=== PATIENT | female | born 1960 | race Caucasian/White ===

== ENCOUNTER 2018-04-13 23:00 | Inpatient (IN) | payer OTHER ==
[~2018-04-13] VITALS: Ht 154.9 cm; Wt 85.6 kg
[~2018-04-13 23:00] MED LIST: ATEN-122 PO; FER325 PO; FURO-110 PO; ISOS30TA55 PO; LYR75 PO; OMEP20CA9 PO; OXYC-284 PO
--- NOTE | 2018-04-13 23:10 | ERD ---
ER Documentation Chief Complaint Chief Complaint Right hip pain HPI The patient is a 57-year-old female, presenting to the ER because of acute right hip pain after she fell off the electric shopping cart at [facility]. She denies any head trauma, facial pain, neck pain, chest pain, dyspnea. The pain is 10/10, worse with movement. Past medical history: Hypertension, cirrhosis, chronic low back pain Past surgical history: Infected right knee after hemiarthroplasty, appendectomy, 2 ROS All systems reviewed and are negative except as per history of present illness. Medications Home Meds Reported Medications Oxycodone Hcl-Acetaminophen* (Percocet*) 10-325 Mg Tablet, 1 TAB PO TID PRN for PAIN, TAB 06/13/14 Ferrous Sulfate* (Ferrous Sulfate*) 325 Mg Tabec, 650 MG PO DAILY, TAB 06/12/14 Furosemide* (Lasix*) 20 Mg Tablet, 20 MG PO DAILY, TAB 06/12/14 Isosorbide Mononitrate (Isosorbide Mononitrate) 30 Mg Tab.sr.24h, 30 MG PO DAILY 12/28/11 Atenolol* (Tenormin*) 50 Mg Tablet, 50 MG PO DAILY 04/27/11 Omeprazole* (Prilosec*) 20 Mg Capsule.dr, 20 MG PO BID 04/27/11 Pregabalin* (Lyrica*) 75 Mg Capsule, 150 MG PO BID 11/08/10 Allergies Allergies: Coded Allergies: Penicillins (Verified Allergy, Intermediate, HIVES, 07/02/14) PMhx/Soc Anesthesia Reaction: No Hx Neurological Disorder: No Hx Respiratory Disorders: No Hx Cardiac Disorders: Yes (stent placement ) Hx Psychiatric Problems: No Hx Miscellaneous Medical Probl: No Hx Alcohol Use: No Hx Substance Use: No Hx Tobacco Use: Yes Physical Exam Vitals Vital Signs Date Temp Pulse Resp B/P (MAP) Pulse Ox O2 O2 Flow FiO2 Time Delivery Rate 04/14/18 100 13 131/94 98 Nasal 2.0 02:59 (106) Cannula 04/14/18 99 14 149/97 99 Nasal 2.0 02:17 (114) Cannula 04/14/18 101 00:33 04/14/18 158 16 141/87 98 Nasal 2.0 00:30 (105) Cannula 04/13/18 98.0 160 20 138/100 99 23:15 (113) Physical Exam Const: No acute distress. Head: Atraumatic. Eyes: Normal Conjunctiva. ENT: Normal External Ears, Nose and Mouth. Neck: Full range of motion. No meningismus. Resp: Clear to auscultation bilaterally. Cardio: Regular tachycardic Abd: Soft, non distended, normal bowel sounds, non tender. Skin: No petechiae or rashes. Back: No midline or flank tenderness. Ext: Right lower extremity is shortened and externally rotated, palpable distal pulses Neur: Awake and alert. No focal deficit Psych: Normal Mood and Affect. Result Diagram: 04/13/187 04/13/187 Results 24 hrs Laboratory Tests Test 04/13/18 23:17 White Blood Count 2.9 10^3/ul Red Blood Count 4.25 10^6/ul Hemoglobin 11.4 g/dl Hematocrit 36.7 % Mean Corpuscular Volume 86.4 fl Mean Corpuscular Hemoglobin 26.8 pg Mean Corpuscular Hemoglobin Concent 31.1 g/dl Red Cell Distribution Width 16.8 % Platelet Count 53 10^3/UL Mean Platelet Volume fl Immature Granulocytes % 0.700 % Neutrophils % % Lymphocytes % % Monocytes % % Eosinophils % % Basophils % % Nucleated Red Blood Cells % 0.0 /100WBC Immature Granulocytes # 0.020 10^3/ul Neutrophils # 10^3/ul Lymphocytes # 10^3/ul Monocytes # 10^3/ul Eosinophils # 10^3/ul Basophils # 10^3/ul Nucleated Red Blood Cells # 10^3/ul Prothrombin Time 18.8 Sec Prothrombin Time Ratio 1.5 INR International Normalized Ratio 1.56 Activated Partial Thromboplast Time 45.4 Sec Sodium Level 135 mmol/L Potassium Level 3.7 mmol/L Chloride Level 101 mmol/L Carbon Dioxide Level 24 mmol/L Anion Gap 10 Blood Urea Nitrogen 14 mg/dl Creatinine 0.64 mg/dl Est Glomerular Filtrat Rate mL/min > 60 mL/min Glucose Level 105 mg/dl Calcium Level 9.3 mg/dl Magnesium Level 1.4 mg/dl Troponin I < 0.012 ng/ml Current Medications Medications Dose Sig/Irasema Start Time Status Last (Trade) Ordered Route PRN Stop Time Admin Dose Reason Admin 0.5 mg ONCE STAT 04/13/18 DC 04/13/18 Hydromorphone IV 23:33 04/13/18 23:43 HCl 23:35 (Dilaudid) 0.5 mg ONCE STAT 04/14/18 DC 04/14/18 Hydromorphone IV 00:06 04/14/18 00:12 HCl 00:08 (Dilaudid) Adenosine 2 ml @ [facility]-MED 04/14/18 DC ONCE .ROUTE 00:22 04/14/18 00:23 Adenosine 6 mg ONCE ONCE 04/14/18 DC 04/14/18 (Adenosine) IV 01:00 04/14/18 00:30 01:01 0.5 mg ONCE STAT 04/14/18 DC 04/14/18 Hydromorphone IV 01:46 04/14/18 01:51 HCl 01:47 (Dilaudid) 0.5 mg ONCE ONCE 04/14/18 DC Hydromorphone IV 03:07 04/14/18 HCl 03:08 (Dilaudid) Procedures/[place] [address] Radiology Main Line: [phone] DIAGNOSTIC IMAGING REPORT Patient: FOREST IRELAND : 1960 Age: 57 Sex: F MR #: [id number] DOS: 04/14/18 0014 Ordering MD: WILLIS ROMAN MD Location: E/R Room/Bed: PROCEDURE: Portable chest x-ray. CLINICAL INDICATION: Chest pain. TECHNIQUE: Portable AP view of the chest. COMPARISON: 10/29/2015. FINDINGS: Transcutaneous pacer pads project over the left thoracoabdominal region. No pulmonary edema or conolidation is identified. The cardiac silhouette is not enlarged. No pleural effusion is seen. There is no pneumothorax. No fracture is identified. IMPRESSION: Transcutaneous pacer pads. No pulmonary edema or consolidation. No fracture. RPTAT: HTAR .Gurdeep Long MD, MD Date Time Electronically viewed and signed by .Gurdeep Long MD, MD on 04/14/2018 00:54 .R/ CC: WILLIS ROMAN MD [phone] [place] [address] Radiology Main Line: [phone] DIAGNOSTIC IMAGING REPORT Patient: FOREST IRELAND : 1960 Age: 57 Sex: F MR #: [id number] DOS: 04/13/18 2334 Ordering MD: WILLIS ROMAN MD Location: E/R Room/Bed: PROCEDURE: CT Pelvis without contrast. CLINICAL INDICATION: Trauma, right hip pain. TECHNIQUE: A CT scan of the pelvis was performed without intravenous contrast. Coronal and sagittal reformatted images were obtained from the axial source images. DICOM images are available. Images were reviewed on a high-resolution PACS workstation. CTDIvol: 16.81 mGy. DLP: 496.57 mGy-cm. One or more of the following dose reduction techniques were used: Automated exposure control. Adjustment of the mA and/or kV according to patient size. Use of iterative reconstruction technique. COMPARISON: None available FINDINGS: There is an intertrochanteric fracture of the right hip with mild external rotation of the distal bone and impaction. Mild bilateral hip arthrosis is noted. Degenerative changes are noted along the lower spine, with mild spinal canal stenosis and moderate to severe bilateral neural foraminal narrowing at L4-5. The spleen is enlarged. The visualized small and large bowel are normal in caliber. No perienteric or pericolonic inflammation is seen. The appendix is not identified. The female pelvic organs are grossly unremarkable. There is no pelvic lymphadenopathy. No ascites or pneumoperitoneum is seen. Minimal arterial calcifications are noted. There is no intraperitoneal inflammation or mass. IMPRESSION: Intertrochanteric fracture of the right hip with mild external rotation of the distal bone and impaction. Mild bilateral hip arthrosis. Mild spinal canal stenosis and moderate to severe bilateral neural foraminal narrowing at L4-5. Splenomegaly. RPTAT: HTAR .Gurdeep Long MD, MD Date Time Electronically viewed and signed by .Gurdeep Long MD, MD on 04/14/2018 00:53 .R/ CC: WILLIS ROMAN MD [id number] EKG: At 2345 hrs. read by emergency physician Rate/Rhythm: SVT at 156 beats/min QRS, ST, T-waves: No ST elevation, inferolateral ST and T abnormality Impression: Abnormal EKG EKG: At 12:29 AM after adenosine 6 mg IV read by emergency physician Rate/Rhythm: Normal Sinus Rhythm 87 beats/min QRS, ST, T-waves: No ST elevation, no T inversion, sinus arrhythmia, septal Q waves Impression: Abnormal EKG Mentation: I discussed the patient with the on-call orthopedist Dr. Zuleta at 1:35 AM, who was made aware of the patient condition, the CT scan finding. He accepted the consult MEDICAL MAKING DECISION: The patient is a 57-year-old female, presenting with acute right hip intertrochanteric fracture, acute SVT. She was treated with Dilaudid 0.5 mg IV times for over many hours for acute right hip pain for pain, Onofre catheter with good response. She was treated with adenosine 6 mg IV that aborted SVT The differential diagnoses considered include but are not limited to structural heart disease, ACS, electrolyte imbalance Critical Care: Time: 35 minutes excluding all billable procedures. Treatments/Evaluations: Close monitoring and treatment of unstable vital signs, cardiorespiratory, and neurologic status, while maintaining tight balance of fluid, respiratory, and cardiac interventions. Departure Diagnosis: Primary Impression: Fracture of right hip Additional Impressions: SVT (supraventricular tachycardia) Pancytopenia Condition: Serious Comments I discussed the findings with the patient. I discussed the patient with the hospitalist Dr Marroquin at 1:50 am. who was made aware of the lab, the treatment, the patient condition. The patient is admitted to Tel Disclaimer: Inadvertent spelling and grammatical errors are likely due to EHR/dictation software use and do not reflect on the overall quality of patient care. Also, please note that the electronic time recorded on this note does not necessarily reflect the actual time of the patient encounter. WILLIS ROMAN MD Apr 13, 2018 23:10
[2018-04-13] MEDS ORDERED: HYDROmorphONE 0.5 MG/0.5 ML SYG IV STA (23:33)
[2018-04-14] VITALS (12 sets, daily range): BP systolic 99–183; BP diastolic 53–88; PULSE 76–114; RESP 18–20; Ht 154.9 cm; Wt 85.6 kg
[2018-04-14] MEDS ORDERED: HYDROmorphONE 0.5 MG/0.5 ML SYG IV STA ×2 (00:06→01:46)
[2018-04-14] MEDS ORDERED: ADENOSINE 2 ML ONE (00:22)
[2018-04-14] MEDS: ADENOSINE 6 MG INJ IV ONE ×2 (00:30→01:27)
[2018-04-14] MEDS ORDERED: HYDROmorphONE 0.5 MG/0.5 ML SYG IV ONE (03:07)
[2018-04-14] MEDS ORDERED: DOXY100T20 PO (03:44)
[2018-04-14] MEDS ORDERED: OXYC15TA3 PO (03:51)
[2018-04-14] MEDS ORDERED: [UNRECOGNIZED DRUG - CODE] INJ (03:51)
[2018-04-14] MEDS ORDERED: FLUO20CA22 PO (03:51)
[2018-04-14] MEDS ORDERED: ALPR1TAB7 PO (03:51)
[2018-04-14] MEDS ORDERED: HYDR4TAB PO (03:51)
[2018-04-14] MEDS ORDERED: ONDANSETRON 4 MG INJ IV PRN (06:00)
[2018-04-14] MEDS ORDERED: DEXTROSE 5%-0.45% NACL 1,000 ML IV SCH (06:00)
[2018-04-14] MEDS ORDERED: hydrALAzine 20 MG INJ IV PRN (06:00)
[2018-04-14] MEDS: morphine 2 MG INJ IV PRN ×5 (06:32→21:05)
[2018-04-14] MEDS: ATENOLOL 50 MG TAB PO SCH (09:05)
[2018-04-14] MEDS ORDERED: MAGNESIUM SULFATE 6 GM in DEXTROSE 5% 150 ML IVPB ONE (10:00)
[2018-04-14] MEDS ORDERED: morphine 2 MG INJ IV STA (10:17)
[2018-04-14] MEDS ORDERED: HYDROCODONE/APAP (5/325) TAB PO PRN (11:30)
[2018-04-14] MEDS ORDERED: NACL 0.9% 3 ML SYG IV SCH (11:30)
--- NOTE | 2018-04-14 11:44 | SIPON ---
Date/Time of Note Date/Time of Note DATE: 04/14/18 TIME: 11:39 Operative Report Preoperative Diagnosis large abcess R.U.E. Postoperative Diagnosis same Operation/Procedure Performed I D of abcesses of R.U.E. + debridment by decortification Surgeon see signature line legal assistant none Anesthesia: general Estimated blood loss: other Transfusion Required none Specimen none Grafts/Implants none Complications none SHAHID FONSECA MD Apr 14, 2018 11:44
[2018-04-14] MEDS: SOD CHLORIDE 0.9% 1,000 ML IV SCH ×2 (11:54→20:59)
[2018-04-14] MEDS ORDERED: FILG480D2 IJ (14:09)
--- NOTE | 2018-04-14 16:21 | CONS ---
DATE OF ADMISSION: 04/14/2018 DATE OF CONSULTATION: 04/14/2018 ORTHOPEDIC CONSULTATION HISTORY OF PRESENT ILLNESS: The patient is a 57-year-old female with a known history of hypertension , cirrhosis of liver and chronic low back pain who was admitted on 04/14/2018 when she came to the em ergency room complaining of painful limit of motion involving the right hip. She developed this pain after falling off an electronic shopping cart at [facility]. She obviously had a total knee replacement done about 3 years ago, which got infected and she went th rough the removal of the knee prosthesis followed by the usual step of debridement, spacer placement followed by a revision total knee replacement of the right knee in the past. PHYSICAL EXAMINATION: My examination revealed a 57-year-old female who was not in any acute distress . There was tenderness and swelling around the right hip. There was a scar over the right knee from previous revision total knee replacement of the right knee. There was no obvious shortening or abno rmal rotation of the right lower extremity at this time. There were no signs of acute neurovascular compromise at this time. IMAGING: CT scan of the hip revealed a presence of intertrochanteric fracture which is not displaced . DIAGNOSTIC IMPRESSION: Intertrochanteric fracture of the right hip. TREATMENT PLAN: Open reduction and internal fixation of the intertrochanteric fracture of the right hip in earliest convenience. Dictated By: LUIS LIRA/NTS Conf#: [id number] DID#: [id number] CC: TOMMIE CHARLES MD;*EndCC*
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
[2018-04-14] MEDS: FILGRASTIM 480 MCG INJ SC SCH (17:00)
[2018-04-14] MEDS: PROCRIT SC SCH (18:35)
[2018-04-15] VITALS (26 sets, daily range): BP systolic 108–166; BP diastolic 54–89; PULSE 68–104; RESP 14–20
[2018-04-15] MEDS: morphine 2 MG INJ IV PRN ×4 (00:35→21:57)
[2018-04-15] MEDS: SOD CHLORIDE 0.9% 1,000 ML IV SCH ×4 (03:52→22:02)
[2018-04-15] MEDS: morphine 4 MG/ML VIAL IV PRN (05:55)
[2018-04-15] MEDS ORDERED: LIDOCAINE 2% (SDV) 5 ML INJ ONE (07:00)
[2018-04-15] MEDS ORDERED: PROPOFOL 20 ML ONE (07:52)
--- NOTE | 2018-04-15 07:56 | PREAC ---
Date/Time of Note Date/Time of Note DATE: 04/15/18 TIME: 07:54 Anesthesia Eval and Record Evaluation Time Pre-Procedure Interview DATE: 04/15/18 TIME: 07:54 Age 57 Sex female NPO: 8 hrs Preoperative diagnosis right hip fracture Planned procedure orif right hip fracture Past Medical History Past Medical History: Includes Cardio: HTN Musculoskeletal: Osteoarthritis Hepatic: Cirrhosis Heme: Anemia, Coagulation disorder, Thrombocytopenia Surgery & Anesthesia Issues No known issue Meds Anticoagulation: No Beta Hkari within 24 hr: Yes Reported Medications Filgrastim (Neupogen) 480 Mcg/0.8 Ml Syringe, 480 MCG IJ q other day 04/14/18 Epoetin Louis (Procrit) 40,000 Unit/1 Ml Vial, 04887 UNIT INJ q other day 04/14/18 Fluoxetine Hcl* (Fluoxetine Hcl*) 20 Mg Capsule, 20 MG PO DAILY for 90 Days, #90 04/14/18 Alprazolam* (Alprazolam*) 1 Mg Tablet, 1 MG PO QHS 04/14/18 Oxycodone Hcl (Roxicodone) 15 Mg Tablet, 15 MG PO TK 1 T PO QID PRN; 04/14/18 Hydromorphone Hcl (Dilaudid) 4 Mg Tab, 4 MG PO for 30 Days, #60 04/14/18 Doxycycline Hyclate* (Doxycycline Hyclate*) 100 Mg Tablet.dr, 100 MG PO BID, TAB 04/14/18 Ferrous Sulfate* (Ferrous Sulfate*) 325 Mg Tabec, 650 MG PO DAILY, TAB 06/12/14 Atenolol* (Tenormin*) 50 Mg Tablet, 50 MG PO DAILY 04/27/11 Omeprazole* (Prilosec*) 20 Mg Capsule.dr, 20 MG PO BID 04/27/11 Discontinued Reported Medications Oxycodone Hcl-Acetaminophen* (Percocet*) 10-325 Mg Tablet, 1 TAB PO TID PRN for PAIN, TAB 06/13/14 Furosemide* (Lasix*) 20 Mg Tablet, 20 MG PO DAILY, TAB 06/12/14 Isosorbide Mononitrate (Isosorbide Mononitrate) 30 Mg Tab.sr.24h, 30 MG PO DAILY 12/28/11 Pregabalin* (Lyrica*) 75 Mg Capsule, 150 MG PO BID 11/08/10 Current Medications Morphine Sulfate (morphine) 2 mg Q3 PRN IV SEVERE PAIN LEVEL 7-10 Last administered on 04/15/18 03:48; Admin Dose 2 MG; Start 04/14/18 at 06:00 Ondansetron HCl (Zofran Inj) 4 mg Q4H PRN IV NAUSEA AND/OR VOMITING Last ad ministered on 04/14/18 20:19; Admin Dose 4 MG; Start 04/14/18 at 06:00 Hydralazine HCl (Apresoline) 10 mg Q4H PRN IV ELEVATED BLOOD PRESSURE Last administered on 04/14/18 06:32; Admin Dose 10 MG; Start 04/14/18 at 06:00 Atenolol (Tenormin) 50 mg DAILY PO Last administered on 04/14/18 09:05; Admin Dose 50 MG; Start 04/14/18 at 09:00 IV Flush (NS 3 ml) 3 ml PER PROTOCOL IV ; Start 04/14/18 at 11:30 Sodium Chloride 1,000 ml @ 100 mls/hr Q10H IV Last administered on 04/15/18at 03:52; Admin Dose 100 MLS/HR; Start 04/14/18 at 11:25 Enoxaparin Sodium (Lovenox) 40 mg DAILY SC ; Start 04/15/18 at 09:00 Morphine Sulfate (morphine) 3 mg Q3H PRN IV SEVERE PAIN LEVEL 7-10 Last administered on 04/15/18 05:55; Admin Dose 3 MG; Start 04/14/18 at 11:30 Acetaminophen/ Hydrocodone Bitart (Winona (5/325)) 1 tab Q3H PRN PO MODERATE PAIN LEVEL 4-6; Start 04/14/18 at 11:30 Patient Own Medication 1 ea Q48H SC Last administered on 04/14/18at 18:35; Admin Dose 1 EA; Start 04/14/18 at 17:00 Filgrastim (Neupogen) 480 mcg Q48H SC ; Start 04/14/18 at 17:00 Meds reviewed: Yes Allergies Coded Allergies: Penicillins (Unverified Allergy, Intermediate, HIVES, 04/14/18) Allergies Reviewed: Yes Labs/Studies Labs Reviewed: Reviewed by anesthesiologist Result Diagram: 04/15/18 0517 04/14/18 1438 Laboratory Tests 04/14/18 14:38 04/15/18 05:17 Blood Bank Test 04/15/18 06:07 04/15/18 06:29 Blood Product Summary Counts Antibody Screen NEGATIVE Blood Type A POSITIVE test: N/A Pre-procedure Exam Last vitals Vital Signs Date Temp Pulse Resp B/P (MAP) Pulse Ox O2 O2 Flow FiO2 Time Delivery Rate 04/15/18 99.1 68 18 121/58 96 07:11 (79) 04/14/18 Room Air 05:23 04/14/18 2.0 02:59 Airway: Adequate mouth opening, Adequate thyromental dist Mallampati: Mallampati II Teeth: Normal Lung: Normal Heart: Normal ASA Physical Status ASA physical status: 3 Emergency: E Planned Anesthetic General/MAC: ETT Planned Pain Management Parenteral pain med Pre-operative Attestations Prior to commencing anesthesia and surgery, the patient was re-evaluated, there was verification of: *The patient's identity *The results of appropriate recent lab work and preoperative vital signs *The above evaluation not changing prior to induction *Anesthetic plan, risk benefits, alternative and complications discussed with patient/family; questions answered; patient/family understands, accepts and wishes to proceed. DANNA JARAMILLO Apr 15, 2018 07:56
--- NOTE | 2018-04-15 08:03 | HPN ---
Date/Time of Note Date/Time of Note DATE: 04/15/18 TIME: 08:03 Interval H&P Admission Note Pt. seen H&P reviewed: No system changes SHAHID FONSECA MD Apr 15, 2018 08:03
[2018-04-15] MEDS ORDERED: VANCOMYCIN 1 GM (PMX) 250 ML ONE (08:06)
[2018-04-15] MEDS ORDERED: POLYMYXIN/BACITRACIN 1L IRRIG ONE (08:06)
[2018-04-15] MEDS ORDERED: morphine 10 MG INJ ONE (08:25)
[2018-04-15] MEDS: ATENOLOL 50 MG TAB PO SCH (08:49)
[2018-04-15] MEDS: ENOXAPARIN 40 MG/0.4 ML SYG SC SCH (08:49)
[2018-04-15] MEDS ORDERED: ONDANSETRON 4 MG INJ ONE (09:41)
[2018-04-15] MEDS ORDERED: DEXAMETHASONE 4 MG/ML 5 ML INJ ONE (09:41)
[2018-04-15] MEDS ORDERED: ROCURONIUM 50 MG INJ ONE (09:41)
[2018-04-15] MEDS ORDERED: NEOSTIGMINE 10 MG INJ ONE (09:42)
[2018-04-15] MEDS ORDERED: GLYCOPYRROLATE 0.4 MG INJ ONE (09:42)
[2018-04-15] MEDS ORDERED: NACL 0.9% 3 ML SYG IV SCH (10:00)
[2018-04-15] MEDS ORDERED: NALOXONE (0.4 MG/ML) INJ IV PRN (10:00)
[2018-04-15] MEDS ORDERED: morphine 4 MG/ML VIAL IV PRN (10:00)
[2018-04-15] MEDS ORDERED: oxyCODONE 5 MG TAB PO PRN (10:00)
--- NOTE | 2018-04-15 10:08 | PAC ---
Date/Time of Note Date/Time of Note DATE: 04/15/18 TIME: 10:07 Post-Anesthesia Notes Post-Anesthesia Note Last documented vital signs Vital Signs Date Temp Pulse Resp B/P (MAP) Pulse Ox O2 O2 Flow FiO2 Time Delivery Rate 04/15/18 98.2 82 143/78 99 1006 04/15/18 99.1 18 121/58 96 07:11 (79) 04/14/18 Room Air 05:23 04/14/18 2.0 02:59 Activity: WNL Respiratory function: WNL Cardiovascular function: WNL Mental status: Baseline Pain reasonably controlled: Yes Hydration appropriate: Yes Nausea/Vomiting absent: Yes DANNA JARAMILLO Apr 15, 2018 10:08
--- NOTE | 2018-04-15 10:24 | SIPON ---
Date/Time of Note Date/Time of Note DATE: 04/15/18 TIME: 10:17 Operative Report Preoperative Diagnosis intertrochanteric fracture of Rt, hip Postoperative Diagnosis same Operation/Procedure Performed O.R.I.F. of Rt. hip fracture Surgeon see signature line librarian assistant none Anesthesia: general Estimated blood loss: 50 - 100 ml's Transfusion Required none Specimen none Grafts/Implants gamma nail Complications none SHAHID FONSECA MD Apr 15, 2018 10:24
[2018-04-15] MEDS ORDERED: HYDROmorphONE 1 MG/5 ML IV SYRINGE IV PRN ×3 (10:30)
[2018-04-15] MEDS ORDERED: EPHEDrine SULFATE 50 MG/5 ML SYG IV PRN (10:30)
[2018-04-15] MEDS ORDERED: ONDANSETRON 4 MG INJ IV PRN (10:30)
[2018-04-15] MEDS ORDERED: FENTAnyl 50 MCG/ML VIAL IV PRN ×3 (10:30)
[2018-04-15] MEDS ORDERED: ALBUTEROL 0.083% (NEB) 2.5 MG/3 ML AMP HHN PRN (10:30)
[2018-04-15] MEDS ORDERED: MIDAZOLAM 1 MG/ML 2 ML INJ IV PRN (10:30)
[2018-04-15] MEDS ORDERED: MEPERIDINE 25 MG INJ IV PRN (10:30)
[2018-04-15] MEDS ORDERED: DIPHENHYDRAMINE 50 MG INJ IV PRN (10:30)
[2018-04-15] MEDS ORDERED: hydrALAzine 20 MG INJ IV PRN (10:30)
[2018-04-15] MEDS ORDERED: METOCLOPRAMIDE 10 MG INJ IV PRN (10:30)
[2018-04-15] MEDS ORDERED: LABETALOL HCL 20MG INJ IV PRN (10:30)
--- NOTE | 2018-04-15 11:58 | OPR ---
DATE OF OPERATION: 04/15/2018 PREOPERATIVE DIAGNOSIS: Intertrochanteric fracture of the right hip. POSTOPERATIVE DIAGNOSIS: Intertrochanteric fracture of the right hip. PROCEDURE PERFORMED: Open reduction and internal fixation of intertrochanteric fracture of the right hip using short gamma nail. ANESTHESIA: General anesthesia. SURGEON: Luis Fonseca MD. PROCEDURE AND FINDINGS: Under general anesthesia, the patient was placed in supine position upon the fracture table. Utilizing fracture table and under fluoroscopic monitoring, preliminary reduction w as carried out until an acceptable alignment could be achieved. The usual prep and drape was done exposing the right hip and right lower extremity. The intertrochanteric area of the right hip was approached through the small longitudinal lateral inc ision. After opening fascia romario, tip of the greater trochanter was identified and through this tip, intramedullary canal was entered using guide drill and after confirming satisfactory position of the guide drill, opening was enlarged with the cannulated drill. An 11 mm x 180 mm short gamma nail was then introduced into the proximal shaft of the right femur and after proper rotatory adjustment, the guide pin for the lag screw was properly positioned and the measurement revealed that the proper rbuen gth of the lag screw should be 90 mm. After reaming along the guide pin, the selected lag screw in t he size of 90 mm was properly inserted. After obtaining some compression at the fracture site, lag s crew was properly locked. Finally, in order to stabilize the system further, distal locking screw wa s inserted through the static position. After confirming satisfactory alignment of the fracture and proper position of the fixation device an d after irrigation and hemostasis, closure of the incision was carried out using 0 Vicryl for muscle and fascia and 2-0 Vicryl for subcutaneous tissues. The usual sterile pressure dressings were applie d. The patient tolerated the entire procedure very well and was sent to the recovery room in good condit ion. Dictated By: LUIS FONSECA MD IK/NTS Conf#: [id number] DID#: [id number] CC: TOMMIE CHARLES MD;*EndCC*
[2018-04-15] MEDS: VANCOMYCIN 1 GM (PMX) 250 ML IVPB SCH (21:57)
[2018-04-16] VITALS (10 sets, daily range): BP systolic 111–136; BP diastolic 57–68; PULSE 73–93; RESP 17–19
[2018-04-16] MEDS: morphine 4 MG/ML VIAL IV PRN (00:28)
[2018-04-16] MEDS: morphine 2 MG INJ IV PRN ×3 (06:02→15:29)
[2018-04-16] MEDS: VANCOMYCIN 1 GM (PMX) 250 ML IVPB SCH (06:02)
[2018-04-16] MEDS: ATENOLOL 50 MG TAB PO SCH (08:12)
[2018-04-16] MEDS: ENOXAPARIN 40 MG/0.4 ML SYG SC SCH ×3 (08:22→09:00)
[2018-04-16] MEDS ORDERED: ENOX40DI12 SC (09:24)
[2018-04-16] MEDS ORDERED: HYDR-3601 PO (09:24)
[2018-04-16] MEDS ORDERED: Patient Own Medication SC (09:24)
--- NOTE | 2018-04-16 09:25 | PDOCDIS ---
Discharge Instructions CONDITION [id number] Patient Condition: [id number] Good HOME CARE INSTRUCTIONS: [id number] Diet Instructions: [id number] y FOLLOW UP/APPOINTMENTS Follow-up Plan pcp [address] Zuleta 2 weeks TOMMIE CHARLES MD Apr 16, 2018 09:25
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
[2018-04-16] MEDS: SOD CHLORIDE 0.9% 1,000 ML IV SCH (10:28)
[2018-04-16] MEDS ORDERED: ACETAMINOPHEN 325 MG TAB PO PRN (16:00)
[2018-04-16] MEDS: PROCRIT SC SCH (17:00)
[2018-04-16] MEDS: FILGRASTIM 480 MCG INJ SC SCH (17:00)
== END 2018-04-16 18:20 | DRG 481 ==
LOC: E/R 23:00 → 6WM 04-14 01:55
PROVIDERS: ADMIT Internal Medicine; ATTEND Internal Medicine
PROC: 30233N1 Transfusion of Nonautologous Red Blood Cells into Peripheral Vein, Percutaneous Approach (ICD-10-PCS; 2018-04-15)
PROC: 30233K1 Transfusion of Nonautologous Frozen Plasma into Peripheral Vein, Percutaneous Approach (ICD-10-PCS; 2018-04-15)
PROC: 0QS604Z Reposition Right Upper Femur with Internal Fixation Device, Open Approach (ICD-10-PCS; principal; 2018-04-15 07:30)
DX: S72.141A Displaced intertrochanteric fracture of right femur, initial encounter for closed fracture (principal); D61.818 Other pancytopenia; I47.1 Supraventricular tachycardia; D62 Acute posthemorrhagic anemia; Z68.35 Body mass index [BMI] 35.0-35.9, adult; K74.60 Unspecified cirrhosis of liver; E66.9 Obesity, unspecified; B18.2 Chronic viral hepatitis C; I10 Essential (primary) hypertension; M54.5 Low back pain; W17.82XA Fall from (out of) grocery cart, initial encounter; Y93.89 Activity, other specified; Y92.512 Supermarket, store or market as the place of occurrence of the external cause; Y99.8 Other external cause status; Z96.651 Presence of right artificial knee joint
CPT/HCPCS: 36415; 36430; 71045; 72192; 73500; 73510; 80048; 83735; 84484; 85025; 85610; 85730; 86850; 86900; 86901; 86920; 93005; 96374; 96376; 97110; 97116; 97161; C1713; J0153; J0360; J1100; J1170; J1200; J1650; J2270; J2405; J2710; J3370; J3475; J7030; J7042; P9016; P9059

== ENCOUNTER 2018-08-26 05:20 | Observation (INO) | payer OTHER ==
[~2018-08-26] VITALS: Ht 162.6 cm; Wt 100.0 kg
[~2018-08-26 05:20] MED LIST changes: +ALPR1TAB7 PO; +ENOX40DI12 SC; +FILG480D2 IJ; +FLUO20CA22 PO; -FURO-110 PO; +HYDR-3601 PO; -ISOS30TA55 PO; -LYR75 PO; -OXYC-284 PO; +Patient Own Medication SC; +[UNRECOGNIZED DRUG - CODE] INJ
[2018-08-26 05:33] VITALS: Ht 162.6 cm; Wt 100.0 kg
[2018-08-26] MEDS ORDERED: ASPIRIN 325 MG TAB PO STA (05:33)
[2018-08-26] MEDS ORDERED: DILTIAZEM 25 MG INJ ONE (05:34)
[2018-08-26] MEDS ORDERED: DILTIAZEM 25 MG INJ IV ONE ×2 (06:00)
--- NOTE | 2018-08-26 06:27 | ERD ---
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 She stated that she has a home monitor and saw that her heart rate was 164 this prompted her presentation. She has a history of hypertension, she has no known history of SVT. She denies chest pain. She denies shortness of breath, no leg swelling, history of cirrhosis, pancytopenia. ROS All systems reviewed and are negative except as per history of present illness. Medications Home Meds Active Scripts [Patient Own Medication] 1 EA EA No Conflict Check, 1 EA SC Q48H for 10 Days Prov:TOMMIE CHARLES MD 04/16/18 Hydrocodone Bit-Acetaminophen (Hydrocodone Bit-APAP) 5-325MG Tablet, 1 TAB PO Q3H PRN for MODERATE PAIN LEVEL 4-6 for 10 Days, TAB Prov:TOMMIE CHARLES MD 04/16/18 Enoxaparin Sodium (Enoxaparin Sodium) 40 Mg/0.4 Ml Syringe, 40 MG SC DAILY for 10 Days Prov:TOMMIE CHARLES MD 04/16/18 Reported Medications Filgrastim (Neupogen) 480 Mcg/0.8 Ml Syringe, 480 MCG IJ q other day 04/14/18 Epoetin Louis (Procrit) 40,000 Unit/1 Ml Vial, 99715 UNIT INJ q other day 04/14/18 Fluoxetine Hcl* (Fluoxetine Hcl*) 20 Mg Capsule, 20 MG PO DAILY for 90 Days, #90 04/14/18 Alprazolam* (Alprazolam*) 1 Mg Tablet, 1 MG PO QHS 04/14/18 Ferrous Sulfate* (Ferrous Sulfate*) 325 Mg Tabec, 650 MG PO DAILY, TAB 06/12/14 Atenolol* (Tenormin*) 50 Mg Tablet, 50 MG PO DAILY 04/27/11 Omeprazole* (Prilosec*) 20 Mg Capsule.dr, 20 MG PO BID 04/27/11 Allergies Allergies: Coded Allergies: Penicillins (Unverified Allergy, Intermediate, HIVES, 04/14/18) PMhx/Soc History of Surgery: Yes (RIGHT KNEE SX X3, , STENT PLACEMENT) Anesthesia Reaction: No Hx Neurological Disorder: No Hx Respiratory Disorders: No Hx Cardiac Disorders: Yes (CAD, STENT PLACEMENT, HTN) Hx Psychiatric Problems: No Hx Miscellaneous Medical Probl: Yes (hep C, cirrhosis, obesity, recent R knee sx 03/01/18) Hx Alcohol Use: No Hx Substance Use: No Hx Tobacco Use: Yes (1-2 STICKS/DAY) Smoking Status: Current every day smoker FmHx Family History: No diabetes Physical Exam Vitals Vital Signs Date Temp Pulse Resp B/P (MAP) Pulse Ox O2 O2 Flow FiO2 Time Delivery Rate 08/26/18 98.9 92 16 119/63 100 Nasal 3.0 06:30 (81) Cannula 08/26/18 92 16 106/75 100 Nasal 06:15 (85) Cannula 08/26/18 98 16 113/79 98 Nasal 3.0 05:49 (90) Cannula 08/26/18 Nasal 05:45 Cannula 08/26/18 98.9 154 22 165/82 100 05:33 (109) Physical Exam Const: No acute distress Head: Atraumatic Eyes: Normal Conjunctiva ENT: Normal External Ears, Nose and Mouth. Neck: Full range of motion. No meningismus. Resp: Clear to auscultation bilaterally, no wheezes rales or rhonchi Cardio: Regular rate and rhythm, no murmurs Abd: Soft, non tender, non distended. Normal bowel sounds Skin: No petechiae or rashes Back: No midline or flank tenderness Ext: No cyanosis, or edema Neur: Awake and alert, Psych: Normal Mood and Affect Result Diagram: 08/26/18 0550 08/26/18 0550 Results 24 hrs Laboratory Tests Test 08/26/18 05:50 08/26/18 08:12 White Blood Count 1.9 10^3/ul Red Blood Count 3.27 10^6/ul Hemoglobin 9.8 g/dl Hematocrit 29.9 % Mean Corpuscular Volume 91.4 fl Mean Corpuscular Hemoglobin 30.0 pg Mean Corpuscular Hemoglobin Concent 32.8 g/dl Red Cell Distribution Width 14.1 % Platelet Count 62 10^3/UL Mean Platelet Volume 13.0 fl Immature Granulocytes % 0.500 % Neutrophils % 54.0 % Segmented Neutrophils % (Manual) 41 % Band Neutrophils % (Manual) 3 % Lymphocytes % 30.5 % Lymphocytes % (Manual) 43 % Reactive Lymphocytes % (Manual) 1 % Monocytes % 10.2 % Monocytes % (Manual) 10 % Eosinophils % 4.3 % Eosinophils % (Manual) 1 % Basophils % 0.5 % Basophils % (Manual) 1 % Nucleated Red Blood Cells % 0.0 /100WBC Immature Granulocytes # 0.010 10^3/ul Neutrophils # 1.0 10^3/ul Neutrophils # (Manual) 0.8 10^3/ul Band Neutrophils # 0.0 10^3/ul Lymphocytes (Manual) 0.8 10^3/ul Lymphocytes # 0.6 10^3/ul Reactive Lymphocytes # 0.0 10^3/ul Monocytes # 0.2 10^3/ul Monocytes # (Manual) 0.1 10^3/ul Eosinophils # 0.1 10^3/ul Basophils # 0.0 10^3/ul Basophils # (Manual) 0.0 10^3/ul Nucleated Red Blood Cells # 0.0 10^3/ul Platelet Estimate DECREASED Polychromasia 1+ Poikilocytosis 1+ Ovalocytes 1+ Schistocytes 1+ Sodium Level 143 mmol/L Potassium Level 4.0 mmol/L Chloride Level 114 mmol/L Carbon Dioxide Level 24 mmol/L Anion Gap 5 Blood Urea Nitrogen 16 mg/dl Creatinine 0.54 mg/dl Est Glomerular Filtrat Rate mL/min > 60 mL/min Glucose Level 105 mg/dl Calcium Level 8.9 mg/dl Total Bilirubin 1.0 mg/dl Direct Bilirubin 0.00 mg/dl Indirect Bilirubin 1.0 mg/dl Aspartate Amino Transf (AST/SGOT) 31 IU/L Alanine Aminotransferase (ALT/SGPT) 29 IU/L Alkaline Phosphatase 71 IU/L Troponin I < 0.012 ng/ml 0.025 ng/ml Total Protein 6.3 g/dl Albumin 3.0 g/dl Globulin 3.30 g/dl Albumin/Globulin Ratio 0.90 Current Medications Medications Dose Sig/Irasema Start Time Status Last (Trade) Ordered Route PRN Stop Time Admin Dose Reason Admin Aspirin 325 mg ONCE STAT 08/26/18 DC 08/26/18 (Aspirin) PO 05:33 05:59 08/26/18 05:35 Diltiazem 20 mg ONCE ONCE 08/26/18 DC 08/26/18 HCl IV 06:00 05:46 (Cardizem Iv) 08/26/18 06:01 Diltiazem 20 mg ONCE ONCE 08/26/18 DC HCl IV 06:00 (Cardizem Iv) 08/26/18 06:01 Procedures/MDM This is a 58-year-old female presents for evaluation of palpitations. She is found to be in SVT, patient had no chest pain during her presentation, she converted with 20 mg of diltiazem IV. EKG: Rate/Rhythm: Supraventricular tachycardia rate 156 QRS, ST, T-waves: No changes consistent w/ acute ischemia Impression: No evidence of ischemia or arrhythmia Repeat EKG: Rate/Rhythm: Supraventricular tachycardia rate of 136 QRS, ST, T-waves: No changes consistent w/ acute ischemia Impression: No evidence of ischemia or arrhythmia Repeat EKG: Rate/Rhythm: Normal Sinus Rhythm at a rate of 96 QRS, ST, T-waves: No changes consistent w/ acute ischemia Impression: No evidence of ischemia or arrhythmia 9:02 AM: Initial troponin negative, now up trending to 0.025, given delta troponin elevation, will plan for admission. Accepting Care Team: Current data and ongoing care discussed. Primary: Cara Consulting: None Outstanding Data: none Departure Diagnosis: Primary Impression: SVT (supraventricular tachycardia) Condition: Serious VELEZSLIME MATA MD Aug 26, 2018 06:27
[2018-08-26] MEDS ORDERED: ACETAMINOPHEN 325 MG TAB PO PRN ×2 (09:00→11:00)
[2018-08-26] MEDS ORDERED: ONDANSETRON 4 MG INJ IV PRN ×2 (09:00→11:00)
[2018-08-26] MEDS ORDERED: HYDR4TAB51 PO (09:54)
[2018-08-26] MEDS ORDERED: MELO15TA30 PO (09:55)
[2018-08-26] MEDS ORDERED: OXYC15TA70 PO (09:55)
[2018-08-26] MEDS ORDERED: FLUO20CA22 PO (09:55)
[2018-08-26] MEDS ORDERED: OMEP40CA6 PO (09:56)
[2018-08-26] MEDS ORDERED: CARV6.2579 PO (09:56)
[2018-08-26] MEDS ORDERED: FER325 PO (09:57)
[2018-08-26] MEDS ORDERED: LISI10TA2 PO (09:57)
[2018-08-26] MEDS ORDERED: ISOS30TA67 PO (09:58)
[2018-08-26] MEDS ORDERED: SPIR50TA PO (09:58)
[2018-08-26] MEDS ORDERED: HYDROmorphONE 2 MG/ML SYG IV PRN (11:00)
--- NOTE | 2018-08-26 11:19 | HP ---
DATE OF ADMISSION: 08/26/2018 CHIEF COMPLAINT: Chest pain. HISTORY OF PRESENT ILLNESS: The patient presents to the emergency room at [facility] with l eft arm and chest pain which she states began in the wee hours of this morning. She was in her livin g room, watching television and dozing on the couch when she awakened with left arm pain which is unf amiliar to her and associated chest pain and shortness of breath. She denied any radiation. Denied nausea, vomiting. She has a home pulse oximeter and she used this and noted that her pulse was in th e 160s and she was brought here to the emergency room. PAST MEDICAL HISTORY: Pancytopenia, cirrhosis secondary to hepatitis C, hypertension. MEDICATIONS: Outpatient include: 1. Iron sulfate 325 mg t.i.d. 2. Coreg 6.25 mg b.i.d. 3. Isosorbide mononitrate. 4. Lisinopril. 5. Aldactone. 6. Prozac. 7. Dilaudid. 8. Mobic. 9. Oxycodone. 10. Omeprazole. ALLERGIES: PENICILLIN. SOCIAL HISTORY: The patient lives in [place] with her daughter and 2 sons. Does use a walker for a mbulation. 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 Denies tobacco, alcohol, or i llicit drug use. FAMILY HISTORY: Noncontributory. REVIEW OF SYSTEMS: Five systems reviewed and found not to be revealing. PHYSICAL EXAMINATION: VITAL SIGNS: Blood pressure is 119/63, pulse rate 92, respirations 16, temperature is 98.9. GENERAL: Pleasant woman in no acute distress. Alert and oriented x3. HEENT: Normocephalic, atraumatic without evident scleral icterus, perioral cyanosis. Mucous membran es are moist. NECK: Soft and supple without masses. No evidence of jugular venous distention or carotid bruits. CHEST: Clear to auscultation and percussion bilaterally. HEART: Regular rate and rhythm. S1 systolic murmur heard best at the right upper sternal border. S 2. No added sounds. ABDOMEN: Soft, nontender, nondistended without palpable hepatosplenomegaly. EXTREMITIES: Without clubbing, cyanosis. There is mild edema bilaterally. SKIN: Without rashes. NEUROLOGIC: Grossly intact. LABORATORY STUDIES: Reveal a hemoglobin of 9.8 g/dL, white count of 1900, platelets of 62,000. Sodi um 143, potassium 4.0, chloride 114, bicarbonate 24, BUN 16, creatinine 0.54, glucose 105. Liver fun ction tests are unremarkable. Troponin is 0.012 followed by 0.025. EKG reveals supraventricular tac hycardia at a rate of approximately 150. There are no ST segment changes associated with this. Foll owing administration of diltiazem in the emergency room the patient converted to sinus rhythm. ASSESSMENT AND PLAN: 1. Cardiac: The patient with supraventricular tachycardia associated chest pain. We will plan to t itrate medications. Obtain echocardiogram and cardiology evaluation. 2. Pancytopenia. This is a longstanding problem. The patient used to be under the care of a hemato logist for this; however, has been lost to followup since her insurance changed and plan to arrange o utpatient followup for this. 3. Cirrhosis secondary to hepatitis C, well compensated at this time. Continue to observe. 4. Observation status. Dictated By: CHEPE CAGE MD RER/NTS Conf#: [id number] DID#: [id number] CC: WILLIS PRASAD DO; SLIME VELEZ MD;*EndCC*
[2018-08-26] MEDS: [UNRECOGNIZED DRUG - OTHER] XX SCH ×2 (11:33→19:30)
[2018-08-26] MEDS: ATORVASTATIN 20 MG TAB PO SCH (12:27)
[2018-08-26] MEDS: FUROSEMIDE 20 MG TAB PO SCH (12:28)
[2018-08-26] MEDS: FERROUS SULFATE (EC) 325 MG TAB PO SCH ×2 (12:28→22:04)
[2018-08-26 13:45] VITALS: BP 120/61; PULSE 72; RESP 18
--- NOTE | 2018-08-26 14:19 | CONS ---
Assessment/Plan Assessment/Plan Hospital Course (Demo Recall) SVT History of VSD Mitral valve regurgitation Pancytopenia Hypertension Patient with palpitations and tachycardia consistent with narrow complex tachycardia/SVT History of low magnesium levels, would order supplementation and check level Patient home dose of carvedilol 6.25 mg twice daily, the dose was already doubled by hospitalist, History of VSD seen on echocardiogram in 2016. Repeat echocardiogram pending Consultation Date/Type/Reason Admit Date/Time Aug 26, 2018 at 09:01 Type of Consult Cardiology Reason for Consultation Tachycardia Date/Time of Note DATE: 08/26/18 TIME: 14:11 Hx of Present Illness This is a 58-year-old female with past medical history of pancytopenia, VSD, mitral valve regurgitation who presents with palpitations and shortness of breath. Symptoms began over the evening time when she was on the couch watching TV. Heart rate was in the 140s to 150s when checked at home. Patient called EMS and brought to emergency room. Patient was initially heart rate in the 160s, was given IV Cardizem with resolution of palpitations and shortness of breath. She denies any prior history of palpitations, chest pain with exertion. She does get short of breath at times. She denies any fevers or chills. 12 point review of systems was performed with all pertinent positives and negatives mentioned above and all else is negative Past Medical History Membranous VSD Mitral valve regurgitation Medical History: congestive heart failure, hypertension Home Meds Reported Medications Isosorbide Mononitrate* (Isosorbide Mononitrate*) 30 Mg Tab.er.24h, 30 MG PO DAILY, TAB 08/26/18 Spironolactone* (Aldactone*) 50 Mg Tablet, 50 MG PO QAM, #30 TAB 08/26/18 Ferrous Sulfate* (Ferrous Sulfate*) 325 Mg Tabec, 325 MG PO TID, TAB 08/26/18 Lisinopril* (Lisinopril*) 10 Mg Tablet, 10 MG PO DAILY, #30 TAB 08/26/18 Omeprazole* (Omeprazole*) 40 Mg Capsule.dr, 40 MG PO DAILY, #30 CAP 08/26/18 Carvedilol* (Carvedilol*) 6.25 Mg Tablet, 6.25 MG PO BID, #60 TAB 08/26/18 Meloxicam* (Mobic*) 15 Mg Tablet, 15 MG PO DAILY, #30 TAB 08/26/18 Fluoxetine Hcl* (Fluoxetine Hcl*) 20 Mg Capsule, 20 MG PO DAILY, CAP 08/26/18 Oxycodone Hcl* (IR) (Roxicodone*) 15 Mg Tablet, 15 MG PO Q6H PRN for PAIN, TAB 08/26/18 Hydromorphone Hcl* (Dilaudid*) 4 Mg Tablet, 4 MG PO BID PRN for PAIN, TAB 08/26/18 Discontinued Reported Medications Filgrastim (Neupogen) 480 Mcg/0.8 Ml Syringe, 480 MCG IJ q other day 04/14/18 Epoetin Louis (Procrit) 40,000 Unit/1 Ml Vial, 80073 UNIT INJ q other day 04/14/18 Fluoxetine Hcl* (Fluoxetine Hcl*) 20 Mg Capsule, 20 MG PO DAILY for 90 Days, #90 04/14/18 Alprazolam* (Alprazolam*) 1 Mg Tablet, 1 MG PO QHS 04/14/18 Ferrous Sulfate* (Ferrous Sulfate*) 325 Mg Tabec, 650 MG PO DAILY, TAB 06/12/14 Atenolol* (Tenormin*) 50 Mg Tablet, 50 MG PO DAILY 04/27/11 Omeprazole* (Prilosec*) 20 Mg Capsule.dr, 20 MG PO BID 04/27/11 Discontinued Scripts [Patient Own Medication] 1 EA EA No Conflict Check, 1 EA SC Q48H for 10 Days Prov:TOMMIE CHARLES MD 04/16/18 Hydrocodone Bit-Acetaminophen (Hydrocodone Bit-APAP) 5-325MG Tablet, 1 TAB PO Q3H PRN for MODERATE PAIN LEVEL 4-6 for 10 Days, TAB Prov:TOMMIE CHARLES MD 04/16/18 Enoxaparin Sodium (Enoxaparin Sodium) 40 Mg/0.4 Ml Syringe, 40 MG SC DAILY for 1 0 Days Prov:TOMMIE CHARLES MD 04/16/18 Medications Current Medications Ondansetron HCl (Zofran Inj) 4 mg ER BRIDGE PRN IV NAUSEA/VOMITING; Start 08/26/18 at 09:00; Stop 08/27/18 at 08:59 Acetaminophen (Tylenol Tab) 650 mg ER BRIDGE PRN PO .MILD PAIN 1-3 OR TEMP; Start 08/26/18 at 09:00; Stop 08/27/18 at 08:59 Ferrous Sulfate (Ferrous Sulfate (Ec)) 325 mg TID PO Last administered on 08/26/18at 12:28; Admin Dose 325 MG; Start 08/26/18 at 13:00 Fluoxetine HCl (Prozac) 20 mg DAILY PO ; Start 08/27/18 at 09:00 Lisinopril (Zestril) 10 mg DAILY PO ; Start 08/27/18 at 09:00 Spironolactone (Aldactone) 50 mg QAM PO ; Start 08/27/18 at 09:00 Pantoprazole (Protonix Tab) 40 mg DAILY@0600 PO ; Start 08/27/18 at 06:00 Carvedilol (Coreg) 12.5 mg Q12H PO Last administered on 08/26/18at 12:29; Admin Dose 12.5 MG; Start 08/26/18 at 11:00 Atorvastatin Calcium (Lipitor) 20 mg DAILY PO Last administered on 08/26/18at 12:27; Admin Dose 20 MG; Start 08/26/18 at 11:00 Hydralazine HCl (Apresoline) 25 mg Q6H PRN PO sbp>160; Start 08/26/18 at 11:00 Furosemide (Lasix) 20 mg DAILY PO Last administered on 08/26/18at 12:28; Admin Dose 20 MG; Start 08/26/18 at 11:00 Acetaminophen (Tylenol Tab) 650 mg Q4H PRN PO MILD PAIN LEVEL 1-3; Start 08/26/18 at 11:00 Ondansetron HCl (Zofran Inj) 4 mg Q4H PRN IV nausea; Start 08/26/18 at 11:00 Hydromorphone HCl (Dilaudid) 1 mg Q4H PRN IV SEVERE PAIN LEVEL 7-10; Start 08/26/18 at 11:00 Miscellaneous Information (*Order Clarification Bulletin) MEDICATION REQUIRES CLARIFICATI... Q8H XX Last administered on 08/26/18at 11:33; Admin Dose 1 EA; Start 08/26/18 at 11:30 Allergies: Coded Allergies: Penicillins (Unverified Allergy, Intermediate, HIVES, 08/26/18) Past Surgical History Past Surgical Hx: other (Multiple orthopedic surgeries) Family History Significant Family History: no pertinent family hx Social History Alcohol Use: none Smoking Status: Current every day smoker Exam/Review of Systems Vital Signs Vitals Vital Signs Date Temp Pulse Resp B/P (MAP) Pulse Ox O2 O2 Flow FiO2 Time Delivery Rate 08/26/18 98.9 82 18 134/85 100 Room Air 12:33 (101) 08/26/18 3.0 10:30 Exam Constitutional: alert, oriented (No apparent distress, no dyspnea with s peaking) Head: normocephalic Respiratory: other (Coarse breath sounds bilaterally, no wheezing) Cardiovascular: regular rate and rhythm, systolic murmur, other (S1-S2 heard) Gastrointestinal: soft, non-tender, bowel sounds Extremities: edema Labs Result Diagram: 08/26/18 0550 08/26/18 0550 Results 24hrs Laboratory Tests Test 08/26/18 05:50 08/26/18 08:12 White Blood Count 1.9 #L Red Blood Count 3.27 L Hemoglobin 9.8 L Hematocrit 29.9 L Mean Corpuscular Volume 91.4 Mean Corpuscular Hemoglobin 30.0 Mean Corpuscular Hemoglobin Concent 32.8 Red Cell Distribution Width 14.1 Platelet Count 62 #L Mean Platelet Volume 13.0 #H Immature Granulocytes % 0.500 H Neutrophils % 54.0 Segmented Neutrophils % (Manual) 41 Band Neutrophils % (Manual) 3 Lymphocytes % 30.5 Lymphocytes % (Manual) 43 Reactive Lymphocytes % (Manual) 1 H Monocytes % 10.2 Monocytes % (Manual) 10 Eosinophils % 4.3 Eosinophils % (Manual) 1 Basophils % 0.5 Basophils % (Manual) 1 Nucleated Red Blood Cells % 0.0 Immature Granulocytes # 0.010 Neutrophils # 1.0 L Neutrophils # (Manual) 0.8 L Band Neutrophils # 0.0 Lymphocytes (Manual) 0.8 Lymphocytes # 0.6 L Reactive Lymphocytes # 0.0 Monocytes # 0.2 L Monocytes # (Manual) 0.1 L Eosinophils # 0.1 Basophils # 0.0 Basophils # (Manual) 0.0 Nucleated Red Blood Cells # 0.0 Platelet Estimate DECREASED Polychromasia 1+ Poikilocytosis 1+ Ovalocytes 1+ Schistocytes 1+ Sodium Level 143 Potassium Level 4.0 Chloride Level 114 H Carbon Dioxide Level 24 Anion Gap 5 Blood Urea Nitrogen 16 Creatinine 0.54 Est Glomerular Filtrat Rate mL/min > 60 Glucose Level 105 Calcium Level 8.9 Total Bilirubin 1.0 Direct Bilirubin 0.00 Indirect Bilirubin 1.0 Aspartate Amino Transf (AST/SGOT) 31 Alanine Aminotransferase (ALT/SGPT) 29 Alkaline Phosphatase 71 Troponin I < 0.012 0.025 Total Protein 6.3 Albumin 3.0 L Globulin 3.30 H Albumin/Globulin Ratio 0.90 Imaging Imaging ECG at 5:34 AM with SVT at 184 bpm, QRS 90 ms, nonspecific ST abnormalities ECG at 5:52 AM sinus rhythm 95 bpm, QRS 96 ms, LA interval 154 ms, nonspecific ST abnormalities Medications Medications Current Medications Ondansetron HCl (Zofran Inj) 4 mg ER BRIDGE PRN IV NAUSEA/VOMITING; Start 08/26/18 at 09:00; Stop 08/27/18 at 08:59 Acetaminophen (Tylenol Tab) 650 mg ER BRIDGE PRN PO .MILD PAIN 1-3 OR TEMP; Start 08/26/18 at 09:00; Stop 08/27/18 at 08:59 Ferrous Sulfate (Ferrous Sulfate (Ec)) 325 mg TID PO Last administered on 08/26/18at 12:28; Admin Dose 325 MG; Start 08/26/18 at 13:00 Fluoxetine HCl (Prozac) 20 mg DAILY PO ; Start 08/27/18 at 09:00 Lisinopril (Zestril) 10 mg DAILY PO ; Start 08/27/18 at 09:00 Spironolactone (Aldactone) 50 mg QAM PO ; Start 08/27/18 at 09:00 Pantoprazole (Protonix Tab) 40 mg DAILY@0600 PO ; Start 08/27/18 at 06:00 Carvedilol (Coreg) 12.5 mg Q12H PO Last administered on 08/26/18at 12:29; Admin Dose 12.5 MG; Start 08/26/18 at 11:00 Atorvastatin Calcium (Lipitor) 20 mg DAILY PO Last administered on 08/26/18at 12:27; Admin Dose 20 MG; Start 08/26/18 at 11:00 Hydralazine HCl (Apresoline) 25 mg Q6H PRN PO sbp>160; Start 08/26/18 at 11:00 Furosemide (Lasix) 20 mg DAILY PO Last administered on 08/26/18at 12:28; Admin Dose 20 MG; Start 08/26/18 at 11:00 Acetaminophen (Tylenol Tab) 650 mg Q4H PRN PO MILD PAIN LEVEL 1-3; Start 08/26/18 at 11:00 Ondansetron HCl (Zofran Inj) 4 mg Q4H PRN IV nausea; Start 08/26/18 at 11:00 Hydromorphone HCl (Dilaudid) 1 mg Q4H PRN IV SEVERE PAIN LEVEL 7-10; Start 08/26/18 at 11:00 Miscellaneous Information (*Order Clarification Bulletin) MEDICATION REQUIRES CLARIFICATI... Q8H XX Last administered on 08/26/18at 11:33; Admin Dose 1 EA; Start 08/26/18 at 11:30 Sunny Cano DO Aug 26, 2018 14:19
[2018-08-26] MEDS ORDERED: MAGNESIUM SULFATE 2 GM/50 ML 50 ML IVPB ONE (14:30)
[2018-08-26 16:27] VITALS: BP 106/56; PULSE 70; RESP 18
[2018-08-26] MEDS ORDERED: OXYCODONE/ACETAMINOPHEN (5/325) TAB PO PRN (18:30)
[2018-08-26] MEDS: OXYCODONE/ACETAMINOPHEN (5/325) TAB PO PRN (18:44)
[2018-08-26 20:00] VITALS: BP 117/62; PULSE 72; RESP 18
[2018-08-26] MEDS ORDERED: ZOLPIDEM 5 MG TAB PO PRN (20:30)
[2018-08-27] VITALS: BP 110/60; PULSE 73; RESP 17
[2018-08-27] MEDS: [UNRECOGNIZED DRUG - OTHER] XX SCH ×2 (03:30→11:30)
[2018-08-27] MEDS ORDERED: PANTOPRAZOLE (EC) 40 MG TAB PO SCH (06:00)
[2018-08-27 07:51] VITALS: BP 116/62; PULSE 70; RESP 18
[2018-08-27] MEDS: FERROUS SULFATE (EC) 325 MG TAB PO SCH ×2 (08:20→12:37)
[2018-08-27] MEDS: FUROSEMIDE 20 MG TAB PO SCH (08:21)
[2018-08-27] MEDS: ATORVASTATIN 20 MG TAB PO SCH (08:21)
[2018-08-27] MEDS: OXYCODONE/ACETAMINOPHEN (5/325) TAB PO PRN (08:33)
[2018-08-27] MEDS ORDERED: SPIRONOLACTONE 50 MG TAB PO SCH (09:00)
[2018-08-27] MEDS ORDERED: FLUOXETINE 20 MG CAP PO SCH (09:00)
[2018-08-27] MEDS ORDERED: LISINOPRIL 10 MG TAB PO SCH (09:00)
[2018-08-27] MEDS ORDERED: CARV12.579 PO (10:14)
[2018-08-27] MEDS ORDERED: LAS20 PO ×2 (10:14→10:56)
--- NOTE | 2018-08-27 10:15 | PDOCDIS ---
Discharge Instructions CONDITION [id number] Patient Condition: [id number] Good HOME CARE INSTRUCTIONS: [id number] Diet Instructions: [id number] FOLLOW UP/APPOINTMENTS Follow-up Plan pcp [address] Cano 2 weeks hematology 1 week TOMMIE CHARLES MD Aug 27, 2018 10:15
[2018-08-27] MEDS ORDERED: MAGNESIUM SULFATE 4 GM/100 ML 100 ML IVPB ONE (11:00)
[2018-08-27 11:54] VITALS: BP 93/54; PULSE 66; RESP 18
[2018-08-27] MEDS ORDERED: FUROSEMIDE 20 MG INJ IV ONE (12:00)
[2018-08-27 15:37] VITALS: BP 110/56; PULSE 68; RESP 17
--- NOTE | 2018-08-27 19:21 | CONS ---
Assessment/Plan Assessment/Plan Hospital Course (Demo Recall) SVT History of VSD Mitral valve regurgitation Pancytopenia Hypertension Patient with palpitations and tachycardia consistent with narrow complex tachycardia/SVT, less episodes since coreg dose increased Extra dose of IV lasix today, increase po lasix Patient home dose of carvedilol 6.25 mg twice daily, the dose was already doubled by hospitalist, History of VSD seen on echocardiogram in 2016. Repeat echocardiogram pending Consultation Date/Type/Reason Admit Date/Time Aug 26, 2018 at 09:01 Initial Consult Date Type of Consult Cardiology Date/Time of Note DATE: 08/27/18 TIME: 19:18 24 HR Interval Summary Free Text/Dictation no sob,cp,palp Exam/Review of Systems Vital Signs Vitals Vital Signs Date Temp Pulse Resp B/P (MAP) Pulse Ox O2 O2 Flow FiO2 Time Delivery Rate 08/27/18 98.2 68 17 110/56 98 15:37 (74) 08/26/18 Room Air 12:33 08/26/18 3.0 10:30 Intake and Output 08/26/18 08/26/18 08/27/18 1515:00 23:00 07:00 IntakeIntake Total 360 ml 480 ml 1760 ml BalanceBalance 360 ml 480 ml 1760 ml Exam Constitutional: alert, oriented Head: normocephalic Respiratory: wheezing Cardiovascular: regular rate and rhythm, systolic murmur Gastrointestinal: soft, non-tender, bowel sounds Extremities: edema Labs Result Diagram: 08/27/18 0615 08/27/18 0614 Results 24hrs Laboratory Tests Test 08/27/18 06:14 08/27/18 06:15 Sodium Level 142 Potassium Level 4.0 Chloride Level 113 H Carbon Dioxide Level 25 Anion Gap 4 L Blood Urea Nitrogen 17 Creatinine 0.53 Est Glomerular Filtrat Rate mL/min > 60 Glucose Level 84 Calcium Level 8.4 Magnesium Level 1.7 White Blood Count 1.5 #L Red Blood Count 3.13 L Hemoglobin 9.2 L Hematocrit 28.5 L Mean Corpuscular Volume 91.1 Mean Corpuscular Hemoglobin 29.4 Mean Corpuscular Hemoglobin Concent 32.3 Red Cell Distribution Width 13.9 Platelet Count 58 L Mean Platelet Volume 12.4 H Immature Granulocytes % 0.000 L Neutrophils % Segmented Neutrophils % (Manual) 58 Lymphocytes % Lymphocytes % (Manual) 37 Monocytes % Monocytes % (Manual) 3 Eosinophils % Basophils % Basophils % (Manual) 2 Nucleated Red Blood Cells % 0.0 Immature Granulocytes # 0.000 Neutrophils # Lymphocytes (Manual) 0.5 L Lymphocytes # Monocytes # Monocytes # (Manual) 0.0 L Eosinophils # Basophils # Basophils # (Manual) 0.0 Nucleated Red Blood Cells # Platelet Estimate DECREASED Giant Platelets 1 H Polychromasia 1+ Poikilocytosis 1+ Anisocytosis 1+ Microcytosis 1+ Ovalocytes 1+ Sunny Cano DO Aug 27, 2018 19:21
--- NOTE | 2018-08-28 06:36 | DS ---
DATE OF ADMISSION: 08/26/2018 DATE OF DISCHARGE: 08/27/2018 DISCHARGE DIAGNOSES: 1. A 58-year-old female with supraventricular tachycardia. 2. Acute congestive heart failure exacerbation. 3. History of ventricular septal defect. 4. Chronic pancytopenia. 5. Cirrhosis secondary to hepatitis C, compensated. HOSPITAL COURSE: A 58-year-old female with multiple other medical problems, presented to emergency r o with complaint of chest discomfort and palpitations. The patient was diagnosed with supraventric ular tachycardia. Coreg was increased to 12.5 mg twice daily. She was seen in consultation by the washer off, Dr. Yordan dickerson. A 2D echo was obtained. Patient has a history of VSD and has failed to follow up with cardiol ogy or cardiothoracic surgery as an outpatient due to changes in her insurance. The patient was also noted to be in congestive heart failure exacerbation. She received IV Lasix. T he patient has chronic pancytopenia. Apparently, she has had a bone marrow biopsy in the past and etiology of pancytopenia is unclear. The patient will be referred to hematology for further evalua tion. I encouraged her to avoid narcotics as much as possible. She is in stable condition for disch arge following further diuresis. MEDICATIONS ON DISCHARGE: 1. Coreg 12.5 mg p.o. b.i.d. 2. Lasix 20 mg p.o. b.i.d. 3. Ferrous sulfate 325 mg 3 times daily. 4. Fluoxetine 20 mg daily. 5. Isosorbide mononitrate 30 mg daily. 6. Lisinopril 10 mg daily. 7. Omeprazole 40 mg daily. 8. Spironolactone 50 mg daily. FOLLOWUP: 1. Follow up with PCP in 1 week. 2. Follow up with Dr. Cano in 1 to 2 weeks. 3. Follow up with hematology as soon as possible. Dictated By: TOMMIE EL/VIGNESH Conf#: [id number] DID#: [id number] CC: WILLIS CANO DO;*EndCC*
--- NOTE | 2018-08-28 17:38 | RADRPT ---
Echocardiogram Report Patient Name: FOREST IRELANDPatient ID: [id number] : 1960 (58y 2m)Study Date: 08/27/2018 7:20:19 AM Gender: FAccession #: [id number] Tech: Angella Westbrook [facility] Location: [facility] Ref.Physician: SUNNY CANO Height(Cm): BSA: Weight(Kg): Quality: AdequateOrder Physician: SNUNY CANO Account #: Procedures: Echocardiographic Report: Transthoracic echocardiogram with complete 2D, M-Mode, and doppler examination. Indications: SVT. Hx of VSD, . Measurements: 2D/M Mode Doppler Measurement Value Normal Range Measurement Value Normal Range LVIDd 2D 4.1 [ 3.8 - 5.2 ] cm AV Mean Tru 1.8 [ 70.0 - 90.0 ] cm/sec LVIDs 2D 2.1 [ 2.2 - 3.5 ] cm AV Mean PG 15.0 [ 2.0 - 4.0 ] mmHg LVPWd 2D 1.3 [ 0.6 - 0.9 ] cm AV VTI 59.2 cm IVSd 2D 1.3 [ 0.6 - 0.9 ] cm AI Peak PG 65.0 mmHg AoR Diam 2D 2.7 [ 2.3 - 3.1 ] cm AI Peak Tru 4.0 cm/sec EDV 2D 75.9 [ 46.0 - 106.0 ] ml AI PHT 768.0 msec ESV 2D 14.4 [ 14.0 - 42.0 ] ml LVOT Mean Tru 1.2 [ 60.0 - 80.0 ] cm/sec EF 2D 81.0 [ 54.0 - 74.0 ] percent LVOT Mean PG 7.0 [ 1.0 - 3.0 ] mmHg LA Dimen 2D 4.8 [ 2.7 - 3.8 ] cm LVOT Peak Tru 1.9 [ 70.0 - 110.0 ] cm/se c LVOT Diam 2.2 [ 2.1 - 2.5 ] cm LVOT Peak PG 14.0 [ 2.0 - 6.0 ] mmHg LVOT Area 3.7 cm2 LVOT VTI 41.3 [ 20.0 - 30.0 ] cm MV E Peak Tru 1.3 [ 60.0 - 130.0 ] cm/se c MV A Peak Tru 1.1 [ 100.0 - 120.0 ] cm/s ec MV E/A 1.1 [ 0.8 - 1.5 ] ratio MV PHT 111.0 [ 20.0 - 100.0 ] msec MV Peak Tru 1.6 [ 60.0 - 130.0 ] cm/se c MV Peak PG 11.0 [ 1.0 - 10.0 ] mmHg MV Mean Tru 1.1 cm/sec MV Mean PG 6.0 mmHg MV Decel Time 218 [ 104 - 258 ] msec MV Decel [place] 4 Lat E` Tru 0.1 [ 10.0 - 15.0 ] cm/sec Lateral E/E` 15.0 [ 1.0 - 2.0 ] ratio Med E` Tru 0.1 cm/sec MV E/A 1.1 [ 0.8 - 1.5 ] ratio MV PHT Peak Tru 1.6 cm/sec MV VTI 53.6 cm MVA PHT 2.0 [ 2.0 - 4.0 ] cm2 TR Peak Tru 2.9 [ 100.0 - 280.0 ] cm/s ec TR Peak PG 34.0 mmHg RVSP 42.0 [ 10.0 - 36.0 ] mmHg RA Pressure 8.0 mmHg Findings: Left Ventricle: Hyperdynamic left ventricular systolic function. Normal left ventricular cavity size. Moderate concentric left ventricular hypertrophy. Ejection fraction is visually estimated at 70 %. Abnormal Diastolic Function. Right Ventricle: Normal right ventricular size. Normal right ventricular systolic function. Left Atrium: There is severe enlargement of left atrium. Right Atrium: The right atrium is normal in size. Mitral Valve: Mild mitral leaflet calcification. Moderate mitral annular calcification. Moderate mitral valve regurgitation. Mild to moderate mitral stenosis. MeanPG 6.00 mmHg. Aortic Valve: Mild aortic stenosis. Mean PG 15.00 mmHg. Aortic cusps appear mildly calcified. Mild aortic valve regurgitation. Tricuspid Valve: Normal appearance of the tricuspid valve. The estimated Peak RVSP is 42 mmHg. There is mild tricuspid regurgitation. Pulmonic Valve: Pulmonic valve not well visualized. Pericardium: Normal pericardium with no significant pericardial effusion. Aorta: Normal aortic root. IVC: Dilated IVC with respiratory collapse consistent with elevated right atrial pressure. Conclusions: Hyperdynamic left ventricular systolic function. Normal left ventricular cavity size. Moderate concentric left ventricular hypertrophy. Ejection fraction is visually estimated at 70 %. Abnormal Diastolic Function. Normal right ventricular size. Normal right ventricular systolic function. There is severe enlargement of left atrium. The right atrium is normal in size. Moderate mitral valve regurgitation. Mild to moderate mitral stenosis. Mild aortic stenosis. Mild aortic valve regurgitation. The estimated Peak RVSP is 42 mmHg. There is mild tricuspid regurgitation. Normal pericardium with no significant pericardial effusion. Electronically Signed By: Sunny Cano 2018-08-28 17:37:37 PDT
== END 2018-08-27 17:45 | disposition home or self-care (01) ==
LOC: E/R 05:20 → TEL 09:01 → INTOOBSV 09:01 → EDBEDREQ 09:29
PROVIDERS: ADMIT Internal Medicine; ATTEND Internal Medicine
DX: I11.0 Hypertensive heart disease with heart failure (principal); I50.9 Heart failure, unspecified; I47.1 Supraventricular tachycardia; D61.818 Other pancytopenia; I34.0 Nonrheumatic mitral (valve) insufficiency; K74.69 Other cirrhosis of liver; B19.20 Unspecified viral hepatitis C without hepatic coma; Z88.0 Allergy status to penicillin
CPT/HCPCS: 36415; 71045; 80048; 80053; 83735; 84484; 85025; 93005; 93306; 96374; 99285; G0378; J1940; J3475; 99217